=== PATIENT | male | born 1980 | race Caucasian/White ===

== ENCOUNTER 2020-05-13 17:45 | Emergency (ER) | payer OTHER ==
[~2020-05-13 17:45] MED LIST: BACTROBAN22 GM TOP; CYCLOBENZAPRINE10 MG PO; DOXYCYCLINE HY100 M2 PO; FLOMAX0.4 MG PO; MUCINEX D ER 11 EACH PO; OMNICEF 300 MG300 MG PO; PAXIL30 MG PO; PHENERGAN 25 MG25 M1 PO; TORADOL 10 MG T10 MG PO; ZOFRAN ODT 4 MG4 MG GT; ZOFRAN4 MG PO
[2020-05-13 18:48] LABS: HEMOGLOBIN 15.9 gm/dl (14.0-17.5); RED BLOOD COUNT 4.97 M/UL (4.20-5.50)
[2020-05-13 18:59] LABS: BUN/CREATININE RATIO 13 (0-10)
[2020-05-13] MEDS ORDERED: ZOFRAN 4 MG TAB4 MG PO (21:10)
[2020-05-13] MEDS ORDERED: IBUPROFEN800 MG PO (21:10)
== END 2020-05-13 21:27 | disposition home or self-care (01) ==
LOC: ER1 17:45
PROVIDERS: Family Medicine
DX: R10.9 Unspecified abdominal pain (principal); I10 Essential (primary) hypertension; M54.9 Dorsalgia, unspecified; Z90.49 Acquired absence of other specified parts of digestive tract
CPT/HCPCS: 36415; 80053; 81001; 83690; 85025; 96374; 96375; 99284; J1885; J2270; J2405